=== PATIENT | male | born 1980 | race Caucasian/White ===

== ENCOUNTER 2016-12-29 23:39 | Emergency (ER) | payer MEDICARE, OTHER ==
--- NOTE | ~2016-12-29 | CT2 ---
[facility] A Service of [facility] RADIOLOGY TEXT RESULTS PATIENT: SANGEETA MILLER LOCATION: [facility] : 76 UNIT #: [id number] AGE: [address]: Clement Howard MD SEX: M ORDER DR: [id number] [facility] [address] [place], [place] [address] [id number] E MR#: [id number] Acc #: [id number] NAME: SANGEETA MILLER : 1980 SEX: M STUDY DATE/TIME: 12/30/2016 1:40 UNIT: RAY ROOM: STUDY DESCRIPTION: CT Abd and Pelv W Cont Attending Physician: Clement Howard M.D. Ordering Physician: Derrick Cyr M.D. Primary Care Physician: Primary Care Physician No MEDICAL IMAGING REPORT This report is preliminary unless electronic signature is present EXAM CT abdomen and pelvis with contrast INDICATIONS Epigastric pain off and on for 2 weeks, which is worse the last days. TECHNIQUE The patient was given 100 mL of Isovue-370 and axial 5 mm images were obtained through the abdomen and pelvis. This CT exam was performed with one or more of the following radiation dose reduction techniques: Automatic exposure control, adjustment of mA and/or kV according to patient size, and iterative reconstruction. FINDINGS The lung bases are clear. The liver, gallbladder, spleen, pancreas, adrenal glands and kidneys are normal. The aorta is normal in size. There is no adenopathy. The bowel is normal. The appendix is normal. The bladder and prostate gland are normal. IMPRESSION Normal appendix. Normal CT abdomen and pelvis with contrast. Dictated by... Sage Roblero M.D. THIS IS AN ELECTRONICALLY VERIFIED REPORT Sage Roblero M.D. at 12/30/2016 9:54 PM FEL/psc TD: 12/30/2016 18:17 JOB #: [id number] [facility] A Service of [facility] RADIOLOGY TEXT RESULTS PATIENT: SANGEETA MILLER LOCATION: [facility] : 76 UNIT #: [id number] AGE: [address]: Clement Howard MD SEX: M ORDER DR: MEDICAL IMAGING REPORT Page 1 of 1 COPY
--- NOTE | ~2016-12-29 | EKG ---
PATIENT: SANGEETA MILLER UNIT #: [id number] Ventricular Rate: 74 BPM Atrial Rate: 74 BPM P-R Interval: 148 ms QRS Duration: 90 ms Q-T Interval: 422 ms QTC Calculation(Bezet): 468 ms P Morrill: 30 degrees Calculated R Morrill: 17 degrees Calculated T Morrill: 14 degrees Diagnosis Line: Normal sinus rhythm Diagnosis Line: Normal ECG Diagnosis Line: No previous ECGs available Diagnosis Line: Confirmed by ALEJANDRA ROBERTS MD ([id number]) on Diagnosis Line: 12/30/2016 3:53:07 PM INTERPRETING MD: ALDEN
[~2016-12-29 23:39] MED LIST: ALBUTEROL17 GM; ANTIHISTAMINE; INDOMETHACIN25 MG PO; INDOMETHACIN75 MG PO; PHENERGAN25 M1 PO; PREDNISONE; PREDNISONE PO; VICODIN 5/500 T1 TAB PO
[2016-12-30 00:30] LABS: URINE SOURCE CLEAN CATCH
[2016-12-30 00:31] LABS: URINE APPEARANCE CLEAR; URINE BILIRUBIN NEG (NEG); URINE BLOOD NEG (NEG); URINE COLOR YELLOW; URINE GLUCOSE NEG (NEG); URINE KETONE NEG (NEG); URINE LEUKOCYTE ESTERASE NEG (NEG); URINE NITRATE NEG (NEG); URINE PH 6.5 (5-8); URINE PROTEIN NEG (NEG); URINE SPECIFIC GRAVITY 1.006 (1.003-1.035); URINE UROBILINOGEN 0.2 MG/DL (NEG)
[2016-12-30 00:35] LABS: CULTURE INDICATED? NO
[2016-12-30 00:52] LABS: BASOPHIL% 0.2 % (0-2.5); EOSINOPHIL# 0.5 X10e3 (0-0.7); EOSINOPHIL% 4.1 % (0.0-7.0); HEMATOCRIT 45.8 % (38.0-50.0); HEMOGLOBIN 15.2 gm/dL (13.0-16.0); LYMPHOCYTE# 3.4 X10e3 (1.0-3.5); LYMPHOCYTE% 26.1 % (17.0-45.0); MEAN CELL VOLUME 88.4 FL (83-96); MEAN CORPUSCULAR HEMOGLOBIN 29.3 PG (28-34); MEAN CORPUSCULAR HGB CONC 33.1 g/dL (30-36); MEAN PLATELET VOLUME 7.5 FL (6.5-11.5); MONOCYTE# 0.8 X10e3 (0-1.0); MONOCYTE% 6.3 % (3.0-12.0); NEUTROPHIL# 8.3 X10e3 (1.5-7.1); NEUTROPHIL% 63.3 % (40-75); PLATELET COUNT 246 X10e3 (140-420); RED BLOOD COUNT 5.19 X10e (3.90-5.60); RED CELL DISTRIBUTION WIDTH 13.6 % (11.0-15.5); WHITE BLOOD COUNT 13.1 X10e3 (4.0-10.5)
[2016-12-30 00:53] LABS: DIFF IND NO
[2016-12-30 01:13] LABS: ALBUMIN SERUM 4.2 g/dL (3.5-5.0); BILIRUBIN, DIRECT 0.1 mg/dL (0.0-0.2); BILIRUBIN,INDIRECT 0.8 mg/dL (0.0-0.9); BILIRUBIN,TOTAL 0.9 mg/dL (0.2-2.0); CALCIUM SERUM 8.6 mg/dL (8.4-10.2); CREATININE SERUM 0.9 mg/dL (0.6-1.4); POTASSIUM 3.4 mmol/L (3.5-5.1); PROTEIN TOTAL SERUM 7.7 g/dL (6.0-8.3)
[2016-12-30 01:21] LABS: POC - CKMB <1.0 ng/mL (0.0-7.9); POC - TROPONIN <0.05 ng/mL (<=0.05)
[2017-01-21] MEDS ORDERED: OXYCODONE-APAP1 EAC4 (13:24)
[2017-01-21] MEDS ORDERED: VICTOZA0.6 MG/0.1 (13:24)
[2017-01-21] MEDS ORDERED: INDOMETHACIN50 MG (13:24)
[2017-01-21] MEDS ORDERED: CITALOPRAM HBR40 MG (13:24)
[2017-01-21] MEDS ORDERED: ZYLOPRIM (13:25)
[2017-01-21] MEDS ORDERED: ABILIFY (13:25)
[2017-01-21] MEDS ORDERED: CELEBREX (13:25)
[2017-01-21] MEDS ORDERED: ZANTAC (13:25)
== END 2016-12-30 02:45 | disposition home or self-care (01) ==
LOC: CED 23:39
PROVIDERS: Emergency Medicine
DX: R10.9 Unspecified abdominal pain (principal); I10 Essential (primary) hypertension; E11.9 Type 2 diabetes mellitus without complications; F17.210 Nicotine dependence, cigarettes, uncomplicated
CPT/HCPCS: 36415; 74177; 80048; 80076; 81003; 82150; 82553; 83690; 84484; 85025; 93005; 99284; Q9967

== ENCOUNTER 2017-01-01 17:23 | Emergency (ER) | payer MEDICARE, OTHER ==
[2017-01-01 16:54] LABS: BASOPHIL# 0.1 X10e3 (0-0.3); BASOPHIL% 0.8 % (0-2.5); EOSINOPHIL# 0.8 X10e3 (0-0.7); EOSINOPHIL% 5.8 % (0.0-7.0); HEMATOCRIT 48.2 % (38.0-50.0); HEMOGLOBIN 15.8 gm/dL (13.0-16.0); LYMPHOCYTE# 2.4 X10e3 (1.0-3.5); LYMPHOCYTE% 17.6 % (17.0-45.0); MEAN CELL VOLUME 88.5 FL (83-96); MEAN CORPUSCULAR HEMOGLOBIN 28.9 PG (28-34); MEAN CORPUSCULAR HGB CONC 32.7 g/dL (30-36); MEAN PLATELET VOLUME 7.3 FL (6.5-11.5); MONOCYTE# 0.8 X10e3 (0-1.0); NEUTROPHIL# 9.4 X10e3 (1.5-7.1); NEUTROPHIL% 69.8 % (40-75); PLATELET COUNT 234 X10e3 (140-420); RED BLOOD COUNT 5.45 X10e (3.90-5.60); RED CELL DISTRIBUTION WIDTH 13.4 % (11.0-15.5); WHITE BLOOD COUNT 13.5 X10e3 (4.0-10.5)
[2017-01-01 17:05] LABS: DIFF IND NO
[2017-01-01 17:20] LABS: BILIRUBIN, DIRECT 0.2 mg/dL (0.0-0.2); BILIRUBIN,INDIRECT 0.6 mg/dL (0.0-0.9); BILIRUBIN,TOTAL 0.8 mg/dL (0.2-2.0); BUN/CREATININE RATIO 8.18; CALCIUM SERUM 8.8 mg/dL (8.4-10.2); CREATININE SERUM 1.1 mg/dL (0.6-1.4); GLOM FILT RATE Estimated 84.7 mL/min (>60); PROTEIN TOTAL SERUM 7.7 g/dL (6.0-8.3)
[2017-01-21] MEDS ORDERED: VICTOZA0.6 MG/0.1 (13:24)
[2017-01-21] MEDS ORDERED: INDOMETHACIN50 MG (13:24)
[2017-01-21] MEDS ORDERED: OXYCODONE-APAP1 EAC4 (13:24)
[2017-01-21] MEDS ORDERED: CITALOPRAM HBR40 MG (13:24)
[2017-01-21] MEDS ORDERED: CELEBREX (13:25)
[2017-01-21] MEDS ORDERED: ZYLOPRIM (13:25)
[2017-01-21] MEDS ORDERED: ZANTAC (13:25)
[2017-01-21] MEDS ORDERED: ABILIFY (13:25)
== END 2017-01-01 19:32 | disposition home or self-care (01) ==
LOC: CED 17:23
DX: R10.84 Generalized abdominal pain (principal); E11.9 Type 2 diabetes mellitus without complications; I10 Essential (primary) hypertension; F32.9 Major depressive disorder, single episode, unspecified; J45.909 Unspecified asthma, uncomplicated; F17.210 Nicotine dependence, cigarettes, uncomplicated
CPT/HCPCS: 36415; 80048; 80076; 83690; 85025; 96361; 96374; 96375; 99284; J2405

== ENCOUNTER 2017-01-21 14:00 | Emergency (ER) | payer MEDICARE, OTHER ==
--- NOTE | ~2017-01-21 | US67 ---
[facility] A Service of [facility] RADIOLOGY TEXT RESULTS PATIENT: SANGEETA MILLER LOCATION: [facility] : 76 UNIT #: [id number] AGE: [address]: Marshall Jacobson MD SEX: M ORDER DR: [id number] [place] [id number] E MR#: [id number] Acc #: [id number] NAME: SANGEETA MILLER : 1980 SEX: M STUDY DATE/TIME: 01/21/2017 14:05 UNIT: SED ROOM: STUDY DESCRIPTION: Gallbladder Attending Physician: Marshall Jacobson M.D. Ordering Physician: Marshall Jacobson M.D. Primary Care Physician: Manjula Weldon M.D. MEDICAL IMAGING REPORT This report is preliminary unless electronic signature is present. EXAM Ultrasound gallbladder 01/21/17 HISTORY Nausea, vomiting, abdominal pain for three weeks. No abdominal surgery. The patient's states he drank a bottle of water one prior to examination. FINDINGS Real-time ultrasonography of the right upper quadrant performed. Comparison to CT examination 12/30/16. The pancreas is poorly visualized due to overlying bowel gas artifact. If there is acute clinical concern in the body of the pancreas it could best be further evaluated with repeat CT examination. The live is difficult to visualize in part due to bowel gas obscuration and in part due to what appears to be diffuse fatty infiltration of the liver. Where visible, no focal hepatic parenchymal abnormality is suggested. The liver measures about 16.2 cm in greatest length. The gallbladder is normal in volume. Small echo reflector in lower gallbladder segment may represent a tiny gallstone or gallbladder wall polyp. It measures on the order of about 3 mm. No sonographic findings of cholecystitis. There is no biliary ductal dilatation. Common duct measures about 3.1 mm in diameter. The portal vein is patent with normal direction of flow. The right kidney measures 9.28 cm in greatest length. There is no hydronephrosis or nephrolithiasis. No perinephric fluid collection and no cystic or solid mass lesion. There appear to be mild distention of extrarenal pelvis. IMPRESSION 1. Study somewhat limited. Pancreas poorly visualized due to bowel gas obscuration. On relatively recent CT examination dated 12/30/16, the pancreas appeared normal. If there is acute clinical concern regarding pancreas, it could be further evaluated with repeat CT examination. [facility] A Service of [facility] RADIOLOGY TEXT RESULTS PATIENT: SANGEETA MILLER LOCATION: [facility] [place] : 76 UNIT #: [id number] AGE: [address]: Marshall Jacobson MD SEX: M ORDER DR: 2. Limited visualization of liver due to donnie gas artifact and fatty infiltration of liver. No gross focal hepatic parenchymal abnormality is seen. 3. 3-mm lower gallbladder segment calculus vs polyp. No evidence of acute cholecystitis. No ductal dilatation. 4. No suspicious right renal finding. There is mild distention of extrarenal pelvis. There is no miguelina hydronephrosis. Dictated by... Luigi Rai M.D. THIS IS AN ELECTRONICALLY VERIFIED REPORT Luigi Rai M.D. at 01/22/2017 6:09 PM CHUY/kehinde TD: 01/21/2017 15:53 JOB #: [id number] MEDICAL IMAGING REPORT Page 1 of 1
[2017-01-21 13:51] LABS: BASOPHIL# 0.1 X10e3 (0-0.3); BASOPHIL% 0.7 % (0-2.5); EOSINOPHIL# 0.5 X10e3 (0-0.7); EOSINOPHIL% 3.8 % (0.0-7.0); HEMATOCRIT 49.7 % (38.0-50.0); HEMOGLOBIN 16.5 gm/dL (13.0-16.0); LYMPHOCYTE# 1.9 X10e3 (1.0-3.5); LYMPHOCYTE% 14.7 % (17.0-45.0); MEAN CELL VOLUME 88.5 FL (83-96); MEAN CORPUSCULAR HEMOGLOBIN 29.3 PG (28-34); MEAN CORPUSCULAR HGB CONC 33.1 g/dL (30-36); MEAN PLATELET VOLUME 7.3 FL (6.5-11.5); MONOCYTE# 0.8 X10e3 (0-1.0); MONOCYTE% 6.5 % (3.0-12.0); NEUTROPHIL# 9.6 X10e3 (1.5-7.1); NEUTROPHIL% 74.3 % (40-75); PLATELET COUNT 261 X10e3 (140-420); RED BLOOD COUNT 5.61 X10e (3.90-5.60); RED CELL DISTRIBUTION WIDTH 13.8 % (11.0-15.5); WHITE BLOOD COUNT 12.9 X10e3 (4.0-10.5)
[2017-01-21 13:54] LABS: DIFF IND NO
[~2017-01-21 14:00] MED LIST changes: +ABILIFY; +CELEBREX; +CITALOPRAM HBR40 MG; +INDOMETHACIN50 MG; +OXYCODONE-APAP1 EAC4; +VICTOZA0.6 MG/0.1; +ZANTAC; +ZYLOPRIM
[2017-01-21 14:07] LABS: ALBUMIN SERUM 4.3 g/dL (3.5-5.0); BILIRUBIN, DIRECT 0.2 mg/dL (0.0-0.2); BILIRUBIN,INDIRECT 0.6 mg/dL (0.0-0.9); BILIRUBIN,TOTAL 0.8 mg/dL (0.2-2.0); CREATININE SERUM 0.9 mg/dL (0.6-1.4); POTASSIUM 4.5 mmol/L (3.5-5.1); PROTEIN TOTAL SERUM 8.1 g/dL (6.0-8.3)
[2017-01-21 15:58] LABS: URINE SOURCE CLEAN CATCH
[2017-01-21 16:10] LABS: URINE APPEARANCE CLEAR; URINE BILIRUBIN NEG (NEG); URINE BLOOD NEG (NEG); URINE COLOR YELLOW; URINE GLUCOSE NEG (NORM); URINE KETONE NEG (NEG); URINE LEUKOCYTE ESTERASE 1+ (NEG); URINE NITRATE NEG (NEG); URINE PROTEIN NEG (NEG); URINE UROBILINOGEN 0.2 MG/DL (NORM)
[2017-01-21 16:16] LABS: MICRO INDICATED? YES
[2017-01-21 16:48] LABS: CULTURE INDICATED? YES; URINE AMORPHOUS SEDIMENT AMORP URATES; URINE BACTERIA 1+ (NEG); URINE RBC 0-2 /[HPF] (0-2); URINE SQUAMOUS EPITHELIAL CELL MODERATE /[HPF]
== END 2017-01-21 17:02 | disposition home or self-care (01) ==
LOC: SED 14:00
PROVIDERS: Emergency Medicine
DX: K29.00 Acute gastritis without bleeding (principal); J45.909 Unspecified asthma, uncomplicated; F17.210 Nicotine dependence, cigarettes, uncomplicated; Z88.0 Allergy status to penicillin
CPT/HCPCS: 76705; 80048; 80076; 81003; 83690; 85025; 86677; 87086; 96374; 96375; 99284; J1200; J2765